=== PATIENT | male | born 1965 | race Caucasian/White ===

== ENCOUNTER 2016-11-03 13:55 | Emergency (ER) | payer SELFPAY ==
[~2016-11-03 13:55] MED LIST: TORADOL 30 MG VIAL ONE
[2016-11-03 14:00] VITALS: BP 149/70; BMI 26.6
[2016-11-03] MEDS ORDERED: NS 1000 ML 1,000 ML IV ONE (14:09)
[2016-11-03] MEDS ORDERED: DILAUDID INJ IVP ONE ×2 (14:09→15:43)
[2016-11-03] MEDS ORDERED: NS 1000 ML 1,000 ML ONE (14:10)
[2016-11-03] MEDS ORDERED: DILAUDID INJ ONE (14:11)
--- NOTE | 2016-11-03 14:12 | DR.GENAD ---
HPI - PCP Primary Care Physician: solo - Complaint/Symptoms Chief Complaint Doctors Comments: Agree with statement. Patient states that he has not been able to eat anything and has have vomiting and severe abdominal pain. He was diagnosed with pancreatitis several years ago and has done quite well. Infact he was not sure at this time as to the etiology of his pain, had forgotten his past history. He was diagnosed with diabetis several years on dication for a few years and has been of Diabetic for several years. Chief Complaint:: patient stated he has a hx of pancrititis and for the past 3 weeks he has been hurting with the same thing. - Source History Provided: Patient - Mode of Arrival Mode of Arrival: Ambulatory - Timing Onset of Chief Complaint: 10/13/16 PMH - PMH Past Medical History: Yes Past Medical History: Arthritis, Hypertension, Kidney Stones Past Surgical History: Yes Surgical History: Appendectomy, Cholecystectomy, Ortho Surgery, Lithotripsy - Family History History of Family Medical Conditions: Yes Family Medical History: Diabetes Mellitus, Cancer, MS, Coronary Artery Disease, Hypertension - Social History Does patient currently use any type of tobacco product: Yes Have you used tobacco products in the last 12 months: Yes Type of Tobacco Use: Cigarettes How many years tobacco product used: 20 Does any household member use tobacco: Yes Alcohol Use: None Do you use any recreational Drugs:: No Lives With: Family Lives Where: Home - infectious screening In the last 2 months have you had wt loss of >10#?: NO Have you had fever, night sweats or hemotysis?: No Have you traveled outside the country in the last 6 months?: No Isolation: Standard ROS - Review of Systems Eyes: No Symptoms Reported ENTM: No Symptoms Reported Respiratoy: No Symptoms Reported Cardiovascular: No Symptoms Reported Gastrointestinal/Abdominal: No Symptoms Reported Genitourinary: No Symptoms Reported Neurological: No Symptoms Reported Integumentary: No Symptoms Reported Hematologic/Lymphatic: No Symptoms Reported Endocrine: No Symptoms Reported Psychiatric: No Symptoms Reported All Other Systems: Reviewed and Negative PE - Vital Signs Vitals: Temperature 98.9 F Pulse Rate 77 Respiratory Rate 18 Blood Pressure [Right Arm] 146/82 Blood Pressure 149/70 O2 Sat by Pulse Oximetry 100 - General Limitations: No Limitations General Appearance: Alert, In Distress - Head Head Exam: Normal Inspection, Atraumatic - Eyes Eye exam: Normal Appearance, PERRL, EOMI - ENT ENT Exam: Normal Exam External Ear Exam: Normal External Inspection TM/Canal Exam: Bilateral Normal Nose Exam: Normal Nose Exam Mouth Exam: Normal Inspection Throat Exam: Normal Inspection - Neck Neck Exam: Normal Inspection - Chest Chest Inspection: Normal Inspection - Respiratory Respiratory Exam: Normal Lung Sounds Bilat, Accessory Muscle Use Respiratory Exam: Bilateral Clear to Auscultation - Cardiovascular Cardiovascular Exam: Regular Rate, Normal Rhythm - Abdominal Exam Abdominal Exam: Tenderness. negative: Distention Abdominal Tenderness: LUQ - Extremities Extremities Exam: Normal Inspection - Back Back Exam: Normal Inspection - Neurologic Neurological Exam: Alert, Oriented X3, CN II-XII Intact - Psychiatric Psychiatric Exam: Normal Affect - Skin Skin Exam: Warm, Dry, Intact Course - Reevaluation 1st: Improved ROR - Labs Reviewed Result Diagrams: 11/03/16 14:21 11/03/16 14:21 Laboratory: WBC 8.9 X10^3/uL (3.6-10.0) 11/03/16 14:21 RBC 5.28 X10^6/uL (4.7-6.0) 11/03/16 14:21 Hgb 15.6 g/dL (13.5-18.0) 11/03/16 14:21 Hct 45.5 % (42.0-54.0) 11/03/16 14:21 MCV 86.2 fL (80.0-100.0) 11/03/16 14:21 MCH 29.6 pg (27.0-34.0) 11/03/16 14:21 MCHC 34.3 g/dL (33.0-35.0) 11/03/16 14:21 RDW 13.7 % (11.6-16.5) 11/03/16 14:21 Plt Count 223 X10^3/uL (150.0-450.0) 11/03/16 14:21 MPV 7.6 fL (7.4-11.0) 11/03/16 14:21 Neut % 67.2 % (42.0-75.0) 11/03/16 14:21 Lymph % 20.8 % (21.0-51.0) L 11/03/16 14:21 Stearns % 9.5 % (0.0-13.0) 11/03/16 14:21 Eos % 1.9 % (0.9-2.9) 11/03/16 14:21 Baso % 0.6 % (0.2-1.0) 11/03/16 14:21 Neut # 6.0 x10^3/uL (2.2-4.8) H 11/03/16 14:21 Lymph # 1.8 X10^3/uL (1.3-2.9) 11/03/16 14:21 Stearns # 0.8 x10^3/uL (0.3-0.8) 11/03/16 14:21 Eos # 0.2 x10^3/uL (0.0-0.2) 11/03/16 14:21 Baso # 0.1 X10^3/uL (0.0-0.1) 11/03/16 14:21 Absolute Nucleated RBC 0.0 /100WBC 11/03/16 14:21 Sodium 141 mmol/L (136-145) 11/03/16 14:21 Corrected Sodium 142 mmol/L (136-145) 11/03/16 14:21 Potassium 4.6 mmol/L (3.5-5.1) 11/03/16 14:21 Chloride 104 mmol/L (98-107) 11/03/16 14:21 Carbon Dioxide 30.4 mmol/L (21-32) 11/03/16 14:21 BUN 16 mg/dL (7-18) 11/03/16 14:21 Creatinine 1.29 mg/dL (0.70-1.30) 11/03/16 14:21 Est GFR (MDRD) Af Amer > 60 (>60) 11/03/16 14:21 Est GFR (MDRD) Non-Af > 60 (>60) 11/03/16 14:21 Glucose 139 mg/dL (65-99) H 11/03/16 14:21 Hemoglobin A1c 6.3 % (4.5-6.2) H 11/03/16 14:21 Calcium 8.5 mg/dL (8.5-10.1) 11/03/16 14:21 Corrected Calcium TNP 11/03/16 14:21 Total Bilirubin 0.40 mg/dL (0.2-1.0) 11/03/16 14:21 AST 20 Units/L (15-37) 11/03/16 14:21 ALT 30 Units/L (12-78) 11/03/16 14:21 Alkaline Phosphatase 78 Units/L (46-116) 11/03/16 14:21 C-Reactive Protein 32.50 mg/L (0-3.0) H 11/03/16 14:21 Total Protein 7.4 g/dL (6.4-8.2) 11/03/16 14:21 Albumin 3.9 g/dL (3.4-5.0) 11/03/16 14:21 Globulin 3.5 g/dL (2.5-4.5) 11/03/16 14:21 Albumin/Globulin Ratio 1.1 Ratio (1.1-2.1) 11/03/16 14:21 Amylase 60 Units/L (25-115) 11/03/16 14:21 Lipase 111 Units/L (73-393) 11/03/16 14:21 - XRAY XRAY Interpreted by: Radiologist (CT Abd/pel: Nonobstructing left sided renal stones largest measuring 4mm) - Diagnosis Discharge Problem: Kidney stones - Discharge Plan Condition: Stable - Follow ups/Referrals Follow ups/Referrals: NFD,None [Primary Care Provider] - 3 days - Instructions
[2016-11-03 14:28] LABS: BASOPHILS # (AUTO) 0.1 X10^3/uL (0.0-0.1); BASOPHILS % (AUTO) 0.6 % (0.2-1.0); EOSINOPHILS # (AUTO) 0.2 x10^3/uL (0.0-0.2); EOSINOPHILS % (AUTO) 1.9 % (0.9-2.9); HEMATOCRIT 45.5 % (42.0-54.0); HEMOGLOBIN 15.6 g/dL (13.5-18.0); LYMPHOCYTES # (AUTO) 1.8 X10^3/uL (1.3-2.9); LYMPHOCYTES % (AUTO) 20.8 % (21.0-51.0); MEAN CORPUSCULAR HEMOGLOBIN 29.6 pg (27.0-34.0); MEAN CORPUSCULAR HGB CONC 34.3 g/dL (33.0-35.0); MEAN CORPUSCULAR VOLUME 86.2 fL (80.0-100.0); MEAN PLATELET VOLUME 7.6 fL (7.4-11.0); MONOCYTES # (AUTO) 0.8 x10^3/uL (0.3-0.8); MONOCYTES % (AUTO) 9.5 % (0.0-13.0); NEUTROPHILS % (AUTO) 67.2 % (42.0-75.0); PLATELET COUNT 223 X10^3/uL (150.0-450.0); RED BLOOD COUNT 5.28 X10^6/uL (4.7-6.0); RED CELL DISTRIBUTION WIDTH 13.7 % (11.6-16.5); WHITE BLOOD COUNT 8.9 X10^3/uL (3.6-10.0)
[2016-11-03 14:43] LABS: ALANINE AMINOTRANSFERASE 30 Units/L (12-78); ALBUMIN 3.9 g/dL (3.4-5.0); ALKALINE PHOSPHATASE 78 Units/L (46-116); AMYLASE 60 Units/L (25-115); ASPARTATE AMINO TRANSFERASE 20 Units/L (15-37); BLOOD UREA NITROGEN 16 mg/dL (7-18); CALCIUM 8.5 mg/dL (8.5-10.1); CARBON DIOXIDE 30.4 mmol/L (21-32); CHLORIDE 104 mmol/L (98-107); COR NA(FOR HYPERGLY) 142 mmol/L (136-145); CREATININE 1.29 mg/dL (0.70-1.30); GLUCOSE 139 mg/dL (65-99); LIPASE 111 Units/L (73-393); SODIUM 141 mmol/L (136-145); TOTAL PROTEIN 7.4 g/dL (6.4-8.2); eGFR BLACK RACES > 60 (>60); eGFR NON BLACK RACES > 60 (>60)
[2016-11-03] MEDS ORDERED: NS 100 ML IV 100 ML IV ONE (14:58)
--- NOTE | 2016-11-03 15:47 | CT ---
CT OF THE ABDOMEN AND PELVIS WITH CONTRAST HISTORY: Pancreatitis Comparison: 03/30/2016 Technique: Multiple axial images of the abdomen and pelvis were obtained from the lung bases to the pubic symph ysis follow the administration of IV contrast. Dose reduction techniques including Automated Exposu re Control (AEC) and adjustment of mA and kV were utlized. Findings: The heart is normal in size. There is no pericardial effusion. Lung bases are clear without focal co nsolidation, pleural effusion or pneumothorax. Liver and spleen are normal in size, enhancement characteristics and contour. Small hepatic cyst in the right lobe is unchanged. The portal vein is patent. No ductal dilitation. Gallbladder absent. Th e pancreas is unremarkable. Adrenal glands are normal. Kidneys enhance symmetrically. Multiple nonob structing left-sided renal stones with the largest measuring 4 mm in the lower pole. No bowel obstruction or inflammation. Diverticulosis without diverticulitis. No abnormal appearing m esenteric or retroperitoneal lymph nodes. No free fluid or fluid collections. The bladder is normal in appearance. Prostate not enlarged. No free fluid or abnormal pelvic lymph n odes. No aggressive osseous lesions. IMPRESSION: 1. No evidence of acute pancreatitis. Please note that clinical pancreatitis may precede imaging fi ndings. 2. Nonobstructing left renal stones. Reported By:
[2016-11-03] MEDS ORDERED: TORADOL 30 MG VIAL IVP ONE (16:00)
[2016-11-03] MEDS ORDERED: TORADOL 30 MG VIAL ONE (16:01)
== END 2016-11-03 15:59 | disposition home or self-care (01) ==
LOC: ER 14:02
DX: N20.0 Calculus of kidney (principal); R10.12 Left upper quadrant pain
CPT/HCPCS: 36415; 74177; 80053; 82150; 83036; 83690; 85025; 86140; 96365; 96374; 96375; 99283; A4222; J1170; J1885